=== PATIENT | female | born 1980 | race Caucasian/White ===

== ENCOUNTER 2017-05-28 01:49 | Emergency (ER) | payer OTHER | END 2017-05-28 02:30 | disposition home or self-care (01) | LOC: SCSER 01:49 | DX: S69.92XA Unspecified injury of left wrist, hand and finger(s), initial encounter (principal); W46.0XXA Contact with hypodermic needle, initial encounter | CPT/HCPCS: 99283 ==

== ENCOUNTER 2018-01-02 12:51 | Emergency (ER) | payer OTHER ==
[2018-01-02] MEDS ORDERED: Metoclopramide HCl 10 MG/2 ML VIAL ONE (13:12)
[2018-01-02 13:34] LABS: #Eosinphils 0.1 thou/uL (0.0-0.7); #Lymphocytes 2.3 thou/uL (1.20-3.40); #Monocytes 0.5 thou/uL (0.11-0.59); #Neutrophils 14.5 thou/uL (1.40-6.50); %Basophils 0.2 % (0.0-1.0); %Eosinophils 0.8 % (0.0-10.0); %Monocytes 2.7 % (0.0-10.0); %Neutrophils 83.3 % (42.0-75.0); Hemoglobin 15.6 g/dL (12.0-16.0); Mean Corpuscular HGB CONC 34.6 g/dL (32.0-36.0); Mean Corpuscular Hemoglobin 30.3 pg (27.0-31.0); Mean Corpuscular Volume 87.5 fl (81.0-99.0); Mean Platelet Volume 9.3 fL (7.4-10.4); Platelet Count 293 thou/uL (130-400); RBC Distribution Width 11.9 % (11.5-14.5); Red Blood Cell (RBC) Count 5.16 mill/uL (4.20-5.40); White Blood Cell (WBC) Count 17.4 thou/uL (4.8-10.8)
[2018-01-02 13:39] LABS: BHCG - Serum Negative (NEGATIVE); Pregs Control Background? CLEAR/WHITE (CLR/WHITE); Pregs Control Bar Appear? YES (CONTROL BAR)
[2018-01-02 13:49] LABS: ALT (SGPT) 15 U/L (8-55); AST (SGOT) 11 U/L (5-34); Albumin 3.8 g/dL (3.5-5.0); Alkaline Phosphatase 69 U/L (40-150); Anion Gap 13 mmol/L (10-20); BUN (Urea Nitrogen) 12 mg/dL (7.0-18.7); Bilirubin, Total 0.6 mg/dL (0.2-1.2); CK (CPK) 38 U/L (29-168); Calc. Creatinine Clearance 0 mL/min (70-130); Calcium 9.1 mg/dL (7.8-10.44); Carbon Dioxide 23 mmol/L (22-29); Chloride 102 mmol/L (98-107); Estimated GFR-MDRD 86; Globulin 2.9 g/dL (2.4-3.5); Glucose 115 mg/dL (70-105); Lipase 6 U/L (8-78); Potassium 4.1 mmol/L (3.5-5.1); Protein, Total 6.7 g/dL (6.0-8.3); Sodium 134 mmol/L (136-145)
[2018-01-02 14:01] LABS: Bilirubin Negative (Negative); Blood, Urine Negative (Negative); Clarity Clear (Clear); Glucose, Urine (Dipstick) Negative (Negative); Leukocyte Negative (Negative); Nitrite Negative (Negative); Protein, Urine (Dipstick) Trace mg/dL (Neg-Trace); Urobilinogen 0.2 mg/dL (0.2-1.0)
== END 2018-01-02 14:50 | disposition home or self-care (01) ==
LOC: SCSER 12:51
DX: R11.2 Nausea with vomiting, unspecified (principal); F43.10 Post-traumatic stress disorder, unspecified; F41.9 Anxiety disorder, unspecified; F17.200 Nicotine dependence, unspecified, uncomplicated
CPT/HCPCS: 36415; 80053; 81003; 82550; 83690; 84703; 85025; 96365; J2765

== ENCOUNTER 2018-01-22 07:49 | Emergency (ER) | payer OTHER ==
[2018-01-22] MEDS ORDERED: Ketorolac Tromethamine 60 MG/2 ML VIAL ONE (08:32)
--- NOTE | 2018-01-22 08:59 | RAD ---
4 VIEWS RIGHT RIBS: Date: 01/22/18 COMPARISON: None. HISTORY: Fall, trauma, pain. FINDINGS: Four view examination of the right ribs demonstrates no displaced fracture. IMPRESSION: No displaced right-sided rib fracture is seen. POS: [facility]
== END 2018-01-22 09:10 | disposition home or self-care (01) ==
LOC: SCSER 07:49
DX: S20.211A Contusion of right front wall of thorax, initial encounter (principal); F41.9 Anxiety disorder, unspecified; F17.200 Nicotine dependence, unspecified, uncomplicated; W20.8XXA Other cause of strike by thrown, projected or falling object, initial encounter
CPT/HCPCS: 96372; J1885

== ENCOUNTER 2018-08-03 08:44 | Emergency (ER) | payer OTHER ==
[2018-08-03] MEDS ORDERED: Dexamethasone 10 MG/ML VIAL ONE (08:57)
== END 2018-08-03 09:28 | disposition left against medical advice (07) ==
LOC: SCSER 08:44
DX: H02.845 Edema of left lower eyelid (principal); F43.10 Post-traumatic stress disorder, unspecified; F31.9 Bipolar disorder, unspecified; F17.210 Nicotine dependence, cigarettes, uncomplicated; Z79.899 Other long term (current) drug therapy
CPT/HCPCS: 96372; J1100

== ENCOUNTER 2018-09-12 18:32 | Emergency (ER) | payer OTHER ==
[2018-09-12] MEDS ORDERED: methylPREDNISolone Sod Succ/PF 125 MG/2 ML VIAL ONE (18:55)
[2018-09-12] MEDS ORDERED: Water For Inject, Bacteriostat 30 ML ONE (18:55)
== END 2018-09-12 19:21 | disposition home or self-care (01) ==
LOC: SCSER 18:32
DX: T78.40XA Allergy, unspecified, initial encounter (principal); F31.9 Bipolar disorder, unspecified; F43.10 Post-traumatic stress disorder, unspecified; F17.210 Nicotine dependence, cigarettes, uncomplicated
CPT/HCPCS: 96372; J2930

== ENCOUNTER 2018-12-27 16:58 | Emergency (ER) | payer OTHER | END 2018-12-27 17:23 | disposition home or self-care (01) | LOC: SCSER 16:58 | DX: S50.811A Abrasion of right forearm, initial encounter (principal); L03.113 Cellulitis of right upper limb; D89.89 Other specified disorders involving the immune mechanism, not elsewhere classified; F17.210 Nicotine dependence, cigarettes, uncomplicated; F31.9 Bipolar disorder, unspecified; F43.10 Post-traumatic stress disorder, unspecified; W57.XXXA Bitten or stung by nonvenomous insect and other nonvenomous arthropods, initial encounter | CPT/HCPCS: 99282 ==

== ENCOUNTER 2019-02-22 10:18 | Emergency (ER) | payer OTHER ==
[2019-02-22] MEDS ORDERED: Dexamethasone 10 MG/ML VIAL ONE (10:51)
[2019-02-22] MEDS ORDERED: Famotidine/PF 20 mg/2ml Vial ONE (10:51)
[2019-02-22] MEDS ORDERED: diphenhydrAMINE 50 MG/ML VIAL ONE (10:51)
[2019-02-22 11:09] LABS: #Basophils 0.1 thou/uL (0.0-0.2); #Eosinphils 0.3 thou/uL (0.0-0.7); #Lymphocytes 1.9 thou/uL (1.20-3.40); #Monocytes 0.6 thou/uL (0.11-0.59); #Neutrophils 6.4 thou/uL (1.40-6.50); %Basophils 0.5 % (0.0-1.0); %Eosinophils 3.3 % (0.0-10.0); %Lymphocytes 20.8 % (21.0-51.0); %Monocytes 6.2 % (0.0-10.0); %Neutrophils 69.2 % (42.0-75.0); Mean Corpuscular Hemoglobin 29.9 pg (27.0-31.0); Mean Corpuscular Volume 90.8 fL (78.0-98.0); Mean Platelet Volume 9.7 fL (7.4-10.4); Platelet Count 253 thou/uL (130-400); RBC Distribution Width 12.8 % (11.5-14.5); Red Blood Cell (RBC) Count 4.68 mill/uL (4.20-5.40); White Blood Cell (WBC) Count 9.3 thou/uL (4.8-10.8)
[2019-02-22 11:19] LABS: BHCG - Serum Negative (NEGATIVE); Pregs Control Background? CLEAR/WHITE (CLR/WHITE); Pregs Control Bar Appear? YES (CONTROL BAR)
[2019-02-22 11:23] LABS: ALT (SGPT) 26 U/L (8-55); AST (SGOT) 16 U/L (5-34); Albumin 3.7 g/dL (3.5-5.0); Alkaline Phosphatase 97 U/L (40-150); Anion Gap 12 mmol/L (10-20); BUN (Urea Nitrogen) 12 mg/dL (7.0-18.7); Bilirubin, Total 0.3 mg/dL (0.2-1.2); Calc. Creatinine Clearance 0 mL/min (70-130); Carbon Dioxide 25 mmol/L (22-29); Chloride 105 mmol/L (98-107); Estimated GFR-MDRD 88; Globulin 3.1 g/dL (2.4-3.5); Glucose 99 mg/dL (70-105); Potassium 3.9 mmol/L (3.5-5.1); Protein, Total 6.8 g/dL (6.0-8.3); Sodium 138 mmol/L (136-145)
== END 2019-02-22 13:40 | disposition left against medical advice (07) ==
LOC: SCSER 10:18
DX: T78.3XXA Angioneurotic edema, initial encounter (principal); F31.9 Bipolar disorder, unspecified; F43.10 Post-traumatic stress disorder, unspecified; F17.210 Nicotine dependence, cigarettes, uncomplicated
CPT/HCPCS: 36415; 80053; 84703; 85025; 96361; 96374; 96375; J1100; J1200; S0028

== ENCOUNTER 2019-07-13 18:26 | Inpatient (IN) | payer OTHER ==
[2019-07-13] MEDS ORDERED: Lorazepam 2 MG/ML VIAL ONE (19:33)
[2019-07-13] MEDS ORDERED: Dexamethasone 4 mg/ml Vial ONE (19:34)
[2019-07-13] MEDS ORDERED: EPINEPHrine 1 MG/ML AMP ONE (19:46)
--- NOTE | 2019-07-13 19:55 | PDOC.FPRHP ---
- History of Present Illness Chief Complaint: facial swelling History of Present Illness: Patient is a 38F with a PMHx of recurrent angioedema, dx in the past as immune- mediated, Bipolar 1 disorder, ADD, rathkes pouch that is admitted for recurrent angioedema Patient reports that her face started to swell at 3am this morning while she was asleep. She has not had any times during the day where she felt like she couldn't breathe, her face was just tender from the swelling. Patient reports the last time this happened was 6 months ago, but at that time her feet started to swell, then her hands, and then her face. She states that she is followed by Dr. Christy for this outpatient, who reportedly determined that this is immune-mediated. She is on zolair and singulair for this issue. ED Course: Received epi, famotidine, benadryl, prednisone at outside ED Received 1L NS, ativan, decadron, and epi at [facility] - Allergies/Adverse Reactions Allergies Allergy/AdvReac Type Severity Reaction Status Date / Time cortisone Allergy Unknown Rash Verified 07/13/19 23:23 ondansetron [From Zofran] Allergy Rash Verified 07/13/19 23:23 - Home Medications Medication Instructions Recorded Confirmed Type Amitriptyline HCl [Elavil] 20 mg PO QID 07/13/19 07/13/19 History Dextroamphetamine/Amphetamine 20 mg PO BID 07/13/19 07/13/19 History [Adderall] Montelukast Sodium [Singulair] 10 mg PO BID 07/13/19 07/13/19 History Omalizumab [Xolair] 150 mg SC Q28D 07/13/19 History Paliperidone Palmitate [Invega 156 mg IM [id number] 07/13/19 07/13/19 History Sustenna] Topiramate [Topamax] 100 mg PO DAILY 07/13/19 History buPROPion [Wellbutrin] 150 mg PO BID 07/13/19 History - History PMHx: recurrent angioedema, dx in the past as immune-mediated, Bipolar 1 disorder, ADD, rathkes pouch PSHx: 4 laparaoscopies for endometriosis, appendectomy, finger surgery, c- section, leep procedure FHx: patient is adopted Social: 1ppd smoker x 10 years, occasional etoh, no drug use - Review of Systems General: denies: fever/chills, weight/appetite/sleep changes Eyes: reports: other (difficulty seeing due to facial swelling). denies: eye pain ENT: denies: nasal congestion, rhinorrhea Respiratory: denies: cough, shortness of breath Cardiovascular: reports: edema (facial edema). denies: chest pain, palpitation Gastrointestinal: denies: nausea, vomiting, diarrhea Genitourinary: denies: incontinence, dysuria Skin: denies: lesions, jaundice Musculoskeletal: reports: swelling (facial swelling). denies: stiffness Neurological: denies: seizure, weakness Psychological: denies: anxiety, depression - Vital signs BP: [120/74] HR: [115] RR: [22] Tmax: [97.9] Pox: [95]% on [RA] Wt: [93.9kg] - Physical Exam Constitutional: NAD, awake, alert and oriented HEENT: EOMI, MMM, other (uvula edematous, though airspace surrounding uvula appreciated) Neck: FROM, other (edematous) Chest: no-tender to palpation, no lesions Heart: RRR, normal S1/S2 Lungs: CTAB, no respiratory distress Abdomen: soft, non-tender Musculoskeletal: normal structure, normal tone Neurological: no focal deficit, normal sensation Skin: no jaundice, other (facial swelling) Heme/Lymphatic: no purpura, no petechia Psychiatric: normal mood and affect, good judgment and insight FMR H&P: A/P - Problem List (1) Angioedema Status: Acute Code(s): T78.3XXA - ANGIONEUROTIC EDEMA, INITIAL ENCOUNTER (2) Bipolar 1 disorder Status: Chronic Code(s): F31.9 - BIPOLAR DISORDER, UNSPECIFIED (3) ADD (attention deficit disorder) Status: Chronic Code(s): F98.8 - OTH BEHAV/EMOTN DISORD W ONSET USLY OCCUR IN CHLDHD AND ADOL - Plan #Recurrent angioedema -had epi, famotidine, Benadryl, and prednisone in outside ED -had Ativan, decadron, 1L NS, and epinephrine at [facility] ED -patient was not in respiratory distress, uvula slightly swollen -has seen Dr. 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 Merritt Marrufo, who agrees with the current plan of care. Addendum - Attending - Attending Attestation Date/Time: 07/15/19 [id number] I personally evaluated the patient and discussed the management with Dr. Gamez and Rk. I agree with the History, Examination, Assessment and Plan documented above with any addition or exceptions noted below. Patient speaking without difficulty. Marked edema of eyelids and right lower lip, but oropharynx without edema on my evaluation. Treatment as above.
[2019-07-13] MEDS ORDERED: Bacteriostatic Water 30 ML VIAL FS PRN (20:54)
[2019-07-13] MEDS ORDERED: methylPREDNISolone Sod Succ/PF 125 MG/2 ML VIAL IVP SCH (22:00)
[2019-07-13 23:40] VITALS: BMI 36.7
[2019-07-14] MEDS ORDERED: diphenhydrAMINE 50 MG/ML VIAL IVP SCH (04:00)
[2019-07-14] MEDS ORDERED: Lorazepam 0.5 MG TAB ONE (08:31)
[2019-07-14] MEDS ORDERED: Topiramate 100 MG TAB PO SCH (09:00)
[2019-07-14] MEDS ORDERED: Montelukast Sodium 10 mg Tablet PO SCH (09:00)
[2019-07-14] MEDS ORDERED: Cetirizine HCl 10 MG TAB PO SCH (09:00)
[2019-07-14] MEDS ORDERED: methylPREDNISolone Sod Succ/PF 125 MG/2 ML VIAL IVP SCH (09:00)
[2019-07-14] MEDS ORDERED: Amitriptyline HCl 10 MG TAB PO SCH (09:00)
[2019-07-14] MEDS ORDERED: Famotidine/PF 20 mg/2ml Vial SLOW IVP SCH (09:00)
[2019-07-14] MEDS ORDERED: methylPREDNISolone Sod Succ 40 MG VIAL IVP SCH (09:00)
[2019-07-14] MEDS ORDERED: Loratadine 10 MG TAB PO SCH (09:00)
[2019-07-14] MEDS ORDERED: buPROPion 75 MG TAB PO SCH (09:00)
[2019-07-14 12:15] VITALS: BP 114/55; TEMP 99
--- NOTE | 2019-07-15 08:51 | DIS ---
DATE OF ADMISSION: 07/13/2019 DATE OF DISCHARGE: 07/14/2019 RESIDENT: Jennifer Sheehan, PGY-2. ADMITTING ATTENDING: Alana Eduardo MD DISCHARGE ATTENDING: Mario Cevallos MD CONSULTS: None. 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 PRIMARY DIAGNOSIS: Angioedema secondary to immune mediated condition. SECONDARY DIAGNOSIS: Bipolar disorder. DISCHARGE MEDICATIONS: 1. Benadryl q.6 hours. 2. Famotidine b.i.d. 3. Amitriptyline 20 mg q.a.m. and 50 mg at bedtime. 4. Xolair monthly, last dose 06/21/19. 5. Singulair 10 mg b.i.d. 6. Wellbutrin 150 mg daily. DISCONTINUED MEDICATION: None. HISTORY OF PRESENT ILLNESS/HOSPITAL COURSE: Ms. Ramos is a 38-year-old female with immune-mediated angioedema condition, who follows with Dr. Christy, Program Coordinator. She reports missing couple of doses of her amitriptyline and Singulair and presented to the [facility] yesterday morning for unilateral facial edema, where she was given steroids and Benadryl and discharged. Later that day she developed full facial edema and shortness of breath. At this time, she was transferred to [facility] where she was given Ativan, epinephrine, Benadryl, famotidine and steroids as well as racemic epinephrine. This improved her reported swelling and difficulty swallowing and shortness of breath. She was transferred to [facility] ER in [place], where she was given another dose of epinephrine and admitted. The patient was improved this morning and she no longer had shortness of breath or difficulty swallowing. Her airway was clear with no oropharyngeal edema. She was very anxious and wanted to leave AMA. We discussed the risks of leaving against medical advice with the patient. She agreed to stay and receive IV medications and home medication with the plan to discharge and see Dr. Christy later today. I spoke with Dr. Christy on the phone, who is in agreement with the plan, so the patient could walk in for appointment today. However, the patient would not wait for medications to come from pharmacy and signed AMA paperwork. 10 to 15 minutes later, the patient attempted to return to the unit and stated that it was a mistake to sign out against medical advice. The patient was prompted to report to the ED for medical attention, that we would be happy to admit her. However, the patient decided to see Dr. Christy prior to coming back to the emergency room. DISPOSITION: Stable. DISCHARGE INSTRUCTIONS: 1. Against medical advice. 2. Diet regular. 3. Activity, no restrictions. 4. Follow up with Dr. Christy's office as well as PCP. Job ID: [id number] MTDD
== END 2019-07-14 08:42 | disposition left against medical advice (07) | DRG 642 ==
LOC: ERS 18:26 → INTOOBSV 22:30 → IMCU/EMU 22:30 → OBSVTOIN 22:30
PROVIDERS: ADMIT Family Medicine; ATTEND Family Medicine
DX: D84.1 Defects in the complement system (principal); F31.9 Bipolar disorder, unspecified; F98.8 Other specified behavioral and emotional disorders with onset usually occurring in childhood and adolescence; F17.200 Nicotine dependence, unspecified, uncomplicated; Z88.8 Allergy status to other drugs, medicaments and biological substances; Z79.899 Other long term (current) drug therapy; Z90.49 Acquired absence of other specified parts of digestive tract
CPT/HCPCS: 96361; 96372; 96374; 96375; J0171; J1100; J2060; J2930

== ENCOUNTER 2019-10-12 08:15 | Outpatient (CLI) | payer OTHER ==
--- NOTE | 2019-10-12 10:22 | MRI ---
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 This includes pre and postcontrast thin slice sequences through the sella turcica, including dynamic sequences. FINDINGS: The ventricles are normal in size and configuration. There is no midline shift or any other evidence of mass effect. There is no extra-axial fluid collection. There is a DVA (developmental venous anomaly) in the right lynch radiata and centrum semiovale. There is no intra-axial signal abnormalit y, other abnormal enhancement, mass, recent hemorrhage, or restricted diffusion. There is no Chiari I malformation. In the mid-posterior aspect of the sella turcica, there is a nonenhancing 3 x 4 x 9 mm focal lesion c entered at midline, extending to the left and right, which is isointense to brain parenchyma on T1 WI and minimally hyperintense to mark matter on T2 WI. There is no suprasellar mass. Infundibular sta lk and optic chiasm are normal. Cavernous sinuses are normal. Suprasellar cistern is clear. IMPRESSION: 1. Intrasellar lesion: Evidence for Rathke's cleft cyst. 2. The brain is normal.
[2019-10-12] MEDS ORDERED: Magnevist 469MG/ML 20 ML VIAL ONE (14:20)
== END 2019-10-12 08:16 | disposition home or self-care (01) ==
LOC: TBSIIMAG 08:15
PROVIDERS: ATTEND Neurological Surgery
DX: E23.6 Other disorders of pituitary gland (principal)
CPT/HCPCS: 70553; A9579

== ENCOUNTER 2022-01-09 07:24 | Outpatient (CLI) | payer OTHER | END 2022-01-09 07:25 | disposition home or self-care (01) | LOC: BICMRI 07:24 | PROVIDERS: ATTEND Neurological Surgery | DX: E23.6 Other disorders of pituitary gland (principal); E34.8 Other specified endocrine disorders | CPT/HCPCS: 70553 ==

== ENCOUNTER 2022-07-07 20:43 | Emergency (ER) | payer OTHER ==
[2022-07-07 22:11] LABS: #Eosinphils 0.1 thou/uL (0.0-0.7); #Lymphocytes 3.5 thou/uL (1.20-3.40); #Monocytes 0.7 thou/uL (0.11-0.59); #Neutrophils 6.5 thou/uL (1.40-6.50); %Basophils 0.4 % (0.0-1.0); %Eosinophils 1.4 % (0.0-10.0); %Lymphocytes 32.5 % (21.0-51.0); %Monocytes 6.2 % (0.0-10.0); %Neutrophils 59.6 % (42.0-75.0); Hemoglobin 14.2 g/dL (12.0-16.0); Mean Corpuscular HGB CONC 34.6 g/dL (32.0-36.0); Mean Corpuscular Hemoglobin 31.4 pg (27.0-31.0); Mean Corpuscular Volume 90.6 fl (78.0-98.0); Mean Platelet Volume 8.5 fL (7.4-10.4); Platelet Count 284 10x3/uL (130-400); RBC Distribution Width 12.1 % (11.5-14.5); Red Blood Cell (RBC) Count 4.54 mill/uL (4.20-5.40); White Blood Cell (WBC) Count 10.9 10x3/uL (4.8-10.8)
[2022-07-07 22:29] LABS: BHCG - Serum Negative (NEGATIVE); Pregs Control Background? CLEAR/WHITE (CLR/WHITE); Pregs Control Bar Appear? YES (CONTROL BAR)
[2022-07-07 22:35] LABS: ALT (SGPT) 70 U/L (8-55); AST (SGOT) 46 U/L (5-34); Albumin 3.9 g/dL (3.5-5.0); Alkaline Phosphatase 74 U/L (40-110); Anion Gap 11 mmol/L (10-20); BUN (Urea Nitrogen) 7 mg/dL (7.0-18.7); Bilirubin, Total 0.3 mg/dL (0.2-1.2); CK (CPK) 64 U/L (29-168); Calc. Creatinine Clearance 0 mL/min (70-130); Calcium 9.3 mg/dL (7.8-10.44); Carbon Dioxide 25 mmol/L (22-29); Chloride 105 mmol/L (98-107); Estimated GFR 105; Globulin 2.8 g/dL (2.4-3.5); Glucose 102 mg/dL (70-105); Lipase 11 U/L (8-78); Potassium 3.9 mmol/L (3.5-5.1); Protein, Total 6.7 g/dL (6.0-8.3); Sodium 137 mmol/L (136-145)
[2022-07-07] MEDS ORDERED: Mag-Al 1200 mg/1200 mg/30 ML UDCUP ONE (22:50)
== END 2022-07-07 23:13 | disposition home or self-care (01) ==
LOC: ERS 20:43
DX: K21.00 Gastro-esophageal reflux disease with esophagitis, without bleeding (principal)
CPT/HCPCS: 36415; 80053; 82550; 83690; 84484; 84703; 85025; 93005

== ENCOUNTER 2023-04-07 09:19 | Emergency (ER) | payer OTHER ==
[2023-04-07] MEDS ORDERED: Fluorescein Opthalmic Strip ONE ×2 (10:56→10:57)
[2023-04-07] MEDS ORDERED: Proparacaine 0.5% Opth 15 ML BOT ONE (10:56)
== END 2023-04-07 11:42 | disposition home or self-care (01) ==
LOC: ERS 09:19
DX: H57.89 Other specified disorders of eye and adnexa (principal); T78.40XA Allergy, unspecified, initial encounter; F17.210 Nicotine dependence, cigarettes, uncomplicated
CPT/HCPCS: 99283